=== PATIENT | male | born 1970 | race Asian ===

== ENCOUNTER 2020-01-28 17:53 | Emergency (ER) | payer BC, MEDICARE ==
[~2020-01-28] VITALS: Ht 193 cm; Wt 136.1 kg
[2020-01-28 18:30] LABS: PLATELET COUNT 117 K/uL (142-355)
[2020-01-28 18:36] LABS: POTASSIUM 2.8 mmol/L (3.6-5.2)
[2020-01-28 20:00] VITALS: BP 168/82; TEMP 98.4
== END 2020-01-28 20:00 | disposition home or self-care (01) ==
LOC: ED 17:53
DX: U07.1 COVID-19 (principal); J18.8 Other pneumonia, unspecified organism; E87.6 Hypokalemia
CPT/HCPCS: 36415; 80048; 85027; 87635; 99282; G2023; J0456; U00003

== ENCOUNTER 2020-10-19 15:55 | Outpatient (CLI) | payer BC, MEDICARE, OTHER | END 2020-10-19 23:11 | disposition home or self-care (01) | LOC: INF 15:55 | PROVIDERS: ATTEND Internal Medicine | DX: Z23 Encounter for immunization (principal) | CPT/HCPCS: 96372 ==

== ENCOUNTER 2020-11-10 16:08 | Outpatient (CLI) | payer BC, MEDICARE, OTHER | END 2020-11-10 20:00 | disposition home or self-care (01) | LOC: INF 16:08 | PROVIDERS: ATTEND Internal Medicine | DX: Z23 Encounter for immunization (principal) | CPT/HCPCS: 96372 ==